=== PATIENT | female | born 1970 | race Caucasian/White ===

== ENCOUNTER 2019-09-08 12:18 | Emergency (ER) | payer OTHER, SELFPAY ==
[~2019-09-08] VITALS: Ht 157.5 cm; Wt 74.8 kg
[2019-09-08 12:35] VITALS: BP 126/81
--- NOTE | 2019-09-08 12:51 | NUR ---
C/O FEVER, FATIGUE X3 DAYS. PT WAS NEAR UNCLE WHO WAS TESTED + FOR COVID19. AFEBRILE AT THIS TIME
[2019-09-08 13:25] VITALS: BP 122/75
--- NOTE | 2019-09-08 13:26 | NUR ---
Patient discharged with v/s stable. Written and verbal after care instructions given and explained. Patient alert, oriented and verbalized understanding of instructions. Ambulatory with steady gait. All questions addressed prior to discharge. ID band removed. Patient advised to follow up with PMD. Rx of promethazine, ibu given. Patient educated on indication of medication including possible reaction and side effects. Opportunity to ask questions provided and answered.covied swab done sent to lab
--- NOTE | 2019-09-11 10:23 | NUR ---
COVID RESULTS RECEIVED FROM LAB. POSITIVE RESULTS. COPY PLACED IN [facility]S MAILBOX.
== END 2019-09-08 13:26 | disposition home or self-care (01) ==
LOC: MED 12:18 → EEVIPCON 12:18 → MED 13:26
DX: B34.9 Viral infection, unspecified (principal); Z20.828 Contact with and (suspected) exposure to other viral communicable diseases; R03.0 Elevated blood-pressure reading, without diagnosis of hypertension
CPT/HCPCS: 99283; U0003